=== PATIENT | female | born 1995 | race Caucasian/White ===

== ENCOUNTER 2022-09-15 15:22 | Emergency (ER) | payer MEDICAID ==
[~2022-09-15] VITALS: Ht 170.2 cm; Wt 109.1 kg
--- NOTE | 2022-09-15 15:54 | NUR ---
Pt states that when she woke up one hour ago she started to feel SOB.
[2022-09-15] MEDS ORDERED: LORazepam 1 MG tablet PO ONE (16:20)
[2022-09-15] MEDS ORDERED: diphenhydrAMINE 25 MG/10 ML UD oral solution PO ONE (16:20)
[2022-09-15] MEDS ORDERED: QUEtiapine 25mg tablet PO ONE (17:10)
[2022-09-15] MEDS ORDERED: ketamine 50 mg/ml 10ml vial IM ONE (17:10)
[2022-09-15] MEDS ORDERED: quetiapine 100mg tablet PO SCH (17:10)
[2022-09-15 17:49] VITALS: BP 107/69
[2022-09-15] MEDS ORDERED: QUET25TA PO (17:53)
== END 2022-09-15 18:20 | disposition home or self-care (01) ==
LOC: ER 15:23
DX: F41.9 Anxiety disorder, unspecified (principal); Z20.822 Contact with and (suspected) exposure to COVID-19; R06.00 Dyspnea, unspecified; J45.909 Unspecified asthma, uncomplicated; F17.200 Nicotine dependence, unspecified, uncomplicated
CPT/HCPCS: 87635; 99283; C9803; Q0163

== ENCOUNTER 2022-09-17 16:26 | Emergency (ER) | payer MEDICAID ==
[~2022-09-17] VITALS: Ht 170.2 cm; Wt 109.1 kg
[~2022-09-17 16:26] MED LIST: QUET25TA PO
[2022-09-17 16:53] VITALS: BP 114/75
== END 2022-09-17 17:48 | disposition home or self-care (01) ==
LOC: ER 16:27
DX: J06.9 Acute upper respiratory infection, unspecified (principal); J45.909 Unspecified asthma, uncomplicated
CPT/HCPCS: 99281